=== PATIENT | male | born 1995 | race African-American/Black ===

== ENCOUNTER 2024-05-19 10:37 | Emergency (ER) | payer OTHER, SELFPAY ==
[2024-05-19 10:56] VITALS: BP 147/90; PULSE 65; RESP 16; TEMP 36.6; O2SAT 99; BMI 38.4
--- NOTE | 2024-05-19 11:48 | ED_ITS ---
HPI - Headache General Chief Complaint: Headache Stated Complaint: headaches, sent by [facility] Time Seen by Provider: 05/19/24 11:47 Mode of arrival: Family Vehicle History of Present Illness HPI Narrative: 28-year-old male without history of recurrent headaches in the past, now day 5 of left sided headache, no trauma or injury, no visual disturbances, no photophobia. No trauma recalled or new activities recalled. No weakness to face arm or leg. No posterior neck pain. Pain has been unresponsive to [id number] Tylenol and Motrin thus far. No nausea or vomiting. He has not had any recent cough, denies cold symptoms, denies sore throat. Related Data Previous Rx's Medication Instructions Recorded naproxen 500 mg tablet 500 mg PO BID 7 days #14 tabs 05/19/24 Allergies Allergy/AdvReac Type Severity Reaction Status Date / Time nut - unspecified Allergy Verified 05/19/24 11:04 shellfish derived Allergy Verified 05/19/24 11:04 Review of Systems Review of Systems Narrative: see HPI Patient History Social History Smoking Status: Never smoker Smoking Status: Never smoker alcohol intake frequency: holidays/special occasions only Substance Use Type: does not use Exam Narrative Exam Narrative: GENERAL: Well-developed patient, in mild distress. HEAD: Atraumatic. Normocephalic. No tenderness or skin lesions to the left parietal temporal region symptomatic area. EYES: Pupils equal round and reactive. Extraocular motions intact. No scleral icterus. No injection or drainage. ENT: Nose without bleeding, purulent drainage. Throat without erythema, tonsillar hypertrophy or exudate. Airway patent. NECK: Trachea midline. Non tender CARDIOVASCULAR: Regular rate and rhythm without murmurs, gallops, or rubs. RESPIRATORY: Clear to auscultation. Breath sounds equal bilaterally. No wheezes, rales, or rhonchi. GASTROINTESTINAL: Abdomen soft, non-tender, nondistended. EXTREMITIES: No edema or joint tenderness. BACK: Nontender without deformity or crepitance. No flank tenderness. NEURO: AOx3. Motor exam functions grossly nonfocal. SKIN: No rash or erythema of visible areas Initial Vital Signs Initial Vital Signs: Vital Signs Temperature 97.8 F 05/19/24 10:56 Pulse Rate 65 05/19/24 10:56 Respiratory Rate 16 05/19/24 10:56 Blood Pressure 147/90 H 05/19/24 10:56 Pulse Oximetry 99 05/19/24 10:56 Oxygen Delivery Method Room Air 05/19/24 10:56 Course Orders Ordered: ED Orders 05/19/24 11:57 CT head/brain wo con Stat Discontinued Medications Dexamethasone (Dexamethasone 10 Mg/Ml Vial) 10 mg IV NOW ONE Stop: 05/19/24 11:49 Last Admin: 05/19/24 12:14 Dose: 10 mg Documented By: Diphenhydramine HCl (Diphenhydramine 50 Mg/Ml Vial) 25 mg IV NOW ONE Stop: 05/19/24 11:49 Last Admin: 05/19/24 12:14 Dose: 25 mg Documented By: Ketorolac Tromethamine (Ketorolac 30 Mg/Ml Vial) 30 mg IV NOW ONE Stop: 05/19/24 11:49 Last Admin: 05/19/24 12:14 Dose: 30 mg Documented By: Prochlorperazine (Prochlorperazine 10 Mg/2 Ml Vial) 10 mg IV NOW ONE Stop: 05/19/24 11:49 Last Admin: 05/19/24 12:15 Dose: 10 mg Documented By: Vital Signs Vital signs: Vital Signs - 8 hr 05/19/24 12:15 05/19/24 13:58 Pulse Rate 71 71 Respiratory Rate 16 Blood Pressure 138/76 141/90 H Pulse Oximetry 100 Oxygen Delivery Method Room Air MDM - Headache Lab Data Labs: Point of Care Testing Glucose POC 80 MDM Narrative Medical decision making narrative: 28-year-old male with 5 days duration left-sided headache, no fever, no tenderness on exam, no skin changes. Blood glucose 80. He would like imaging. CT head noncontrast imaging ordered. Symptomatic treatment IV Compazine, Benadryl, Toradol, Decadron ordered. Keep NPO for now. Patient symptoms improving with above treatment initiated. CT head report results still pending. CT Head, no acute changes, see radiology report. Symptoms better, was able to ambulate without problems. 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 Trial of Naproxen, Rx sent. Discharge home, follow-up with PCP advised. Discharge Plan Departure Patient Disposition: Home Clinical Impression: Headache Instructions: DI for Headache Activity Restrictions/Additional Instructions: Left-sided headache unclear cause, for the last number of days. CT head imaging preferred, CT study showed no acute changes per Radiology report. Continue use of Tylenol and or Motrin as needed for headache pain. Recheck with your regular doctor in the next couple of days if not improving. Return to this/nearest emergency department for any change worsening symptoms or any concerns prior Prescriptions: New naproxen 500 mg tablet 500 mg PO BID 7 Days Qty: 14 0RF Stand Alone Forms: Patient Portal/API
--- NOTE | 2024-05-19 11:57 | DI.CT.S_ITS ---
PROCEDURE: CT HEAD/BRAIN WO CON INDICATIONS: left VÁZQUEZ x5d no trauma TECHNIQUE: Noncontrast 4.5 mm thick angled axial sections acquired from the foramen magnum to the vertex, with coronal and sagittal reformats. For radiation dose reduction, the following was used: automated exposure control, adjustment of mA and/or kV according to patient size. COMPARISON: None. FINDINGS: Image quality: Diagnostic. CSF spaces: Basal cisterns are patent. No extra-axial fluid collections. Ventricles are normal in size and shape. Brain: No midline shift. No intracranial masses or hemorrhage. Romero-white matter interface is normal. Skull and face: Calvarium and visualized facial bones are intact, without suspicious lesions. Sinuses: Visualized sinuses demonstrate near complete opacification of left sphenoid sinus. IMPRESSION: No acute intracranial pathology. Near complete opacification of left sphenoid sinus. Dictated by: Holly Arguello M.D. on 05/19/2024 at 13:04 Approved by: Holly Arguello M.D. on 05/19/2024 at 13:06
[2024-05-19] MEDS: DEXAMETHASONE 10 MG/ML VIAL IV (12:14)
[2024-05-19] MEDS: KETOROLAC 30 MG/ML VIAL IV (12:14)
[2024-05-19] MEDS: diphenhydrAMINE 50 MG/ML VIAL 25 MG IV (12:14)
[2024-05-19 12:15] VITALS: BP 138/76; PULSE 71
[2024-05-19] MEDS: PROCHLORPERAZINE 10 MG/2 ML VIAL IV (12:15)
[2024-05-19 13:58] VITALS: BP 141/90; PULSE 71; RESP 16; O2SAT 100
== END 2024-05-19 14:00 | disposition home or self-care (01) ==
PROVIDERS: Emergency Provider Emergency Medicine
DX: R51.9 Headache, unspecified (principal)
CPT/HCPCS: 36415; 70450; 82962; 96374; 96375; 99284; J0780; J1100; J1200; J1885

== ENCOUNTER 2024-05-20 09:05 | Emergency (ER) | payer OTHER, SELFPAY ==
[2024-05-20 09:17] VITALS: BP 141/80; PULSE 81; RESP 16; TEMP 36.6; O2SAT 100; BMI 38.4
--- NOTE | 2024-05-20 09:20 | ED_ITS ---
HPI - Recheck/Abnormal Lab/Rx General Chief Complaint: Recheck/Abnormal Lab/Rx Stated Complaint: sent by [facility] for f/u Time Seen by Provider: 05/20/24 09:20 History of Present Illness HPI narrative: 28yo male returns again for work note, seen by me here yesterday for headache, C T Head negative, symptoms improved with headache cocktail, was discharged home, feeling well, still with slight left parietal headache, taking motrin as needed. Wants note to return to active duties. Related Data Previous Rx's Medication Instructions Recorded naproxen 500 mg tablet 500 mg PO BID 7 days #14 tabs 05/19/24 Allergies Allergy/AdvReac Type Severity Reaction Status Date / Time nut - unspecified Allergy Verified 05/19/24 11:04 shellfish derived Allergy Verified 05/19/24 11:04 Review of Systems Review of Systems Narrative: see HPI Patient History Social History Smoking Status: Never smoker Smoking Status: Never smoker alcohol intake frequency: holidays/special occasions only Substance Use Type: does not use Exam Narrative Exam Narrative: GENERAL: Well-developed patient, alert, cooperative. HEAD: Atraumatic. Normocephalic. EYES: Pupils equal round and reactive. Extraocular motions intact. No scleral icterus. No injection or drainage. ENT: Nose without bleeding, purulent drainage. Throat without erythema, tonsillar hypertrophy or exudate. Airway patent. NECK: Trachea midline. Non tender CARDIOVASCULAR: Regular rate and rhythm without murmurs, gallops, or rubs. RESPIRATORY: Clear to auscultation. Breath sounds equal bilaterally. No wheezes, rales, or rhonchi. GASTROINTESTINAL: Abdomen soft, non-tender, nondistended. EXTREMITIES: No edema or joint tenderness. BACK: Nontender without deformity or crepitance. No flank tenderness. NEURO: AOx3. Motor functions grossly nonfocal SKIN: No rash or erythema of visible areas Initial Vital Signs Initial Vital Signs: Vital Signs Temperature 97.8 F 05/20/24 09:17 Pulse Rate 81 05/20/24 09:17 Respiratory Rate 16 05/20/24 09:17 Blood Pressure 141/80 H 05/20/24 09:17 Pulse Oximetry 100 05/20/24 09:17 Oxygen Delivery Method Room Air 05/20/24 09:17 MDM - Recheck/Abnormal Lab/Rx MDM Narrative Medical decision making narrative: Request for work clearance, negative CT Head yesterday for headache symptoms, afebrile, reassuring exam. Medical clearance for active duties dictated into discharge paperwork Discharge Plan Departure Patient Disposition: Home Clinical Impression: Headache Activity Restrictions/Additional Instructions: Headache symptoms improving since yesterday ED visit. CT head imaging yesterday negative/benign. Incidentally, there was no thyroid nodule noted on imaging, that was added in error on yesterday's discharge instruction. There is no issue with any thyroid that was described on your imaging study yesterday. You are feeling better. Reassuring exam. Normal vitals. Medically cleared for active duties as tolerated. Recheck with your medical provider if there is any problems, a persistence of symptoms, or any concerns prior. Prescriptions: No Action naproxen 500 mg tablet 500 mg PO BID 7 Days Qty: 14 0RF Stand Alone Forms: Patient Portal/API
[2024-05-20 10:01] VITALS: BP 148/78; PULSE 66; RESP 18; O2SAT 99
== END 2024-05-20 10:02 | disposition home or self-care (01) ==
PROVIDERS: Emergency Provider Emergency Medicine
DX: R51.9 Headache, unspecified (principal)
CPT/HCPCS: 99281